=== PATIENT | female | born 1955 | race Caucasian/White ===

== ENCOUNTER 2021-05-18 07:50 | Emergency (ER) | payer OTHER ==
--- OUTSIDE RECORDS SUMMARY | 2021-05-18 07:53 | XMS REPORT | Continuity of Care Document ---
:1955 Author Organization [facility] t Address [address] [place] [address] Care Team Providers Name Role Phone HOLLY SUH Primary Care Physician Unavailable JOSE ROBERTO Attending Clinician Unavailable Samra Rodriguez Attending Clinician [phone] SAMAN SUH Attending Clinician Unavailable Saman Yin Attending Clinician JOSE ROBERTO Admitting Clinician Unavailable SAMAN SUH Admitting Clinician Unavailable Payers Payer Name Policy Type Policy Number Effective Date Expiration Date S won [place]: [id number] 2018 JournalDoc - 00:00:00 [facility] [id number] 2019 COMMUNITY PLAN [place] 00[place]00 [place] A \T\ [id number] 2018 B 00:00:00 MEDICAID [facility] [id number] 2019 00:00:00 Problems This patient has no known problems. Allergies, Adverse Reactions, Alerts Allergy Allergy Status Severity Reaction(s) Onset Inactive Treating Comm ents Source Name Type Date Date Clinician Sulfa Propensi Active Unknown - Unive rs (Sulfona ty to See comments 2-28 it y of mide adverse 00:00: [place] Antibiot reaction 00 Medica l ics) s Branch SULFA Drug Active Unknown-Cmnt Univ ers (SULFONA Class 2-28 ity of MIDE 00:00: [place] ANTIBIOT 00 Medical ICS) Branch Social History Social Habit Start Date Stop Date Quantity Comments Source Sex Assigned At [facility] [place] [facility] [place] Exposure to SARS-CoV-2 Not sure [facility] [place] (event) Medical Branch Smoking Status Start Date Stop Date Source Unknown if ever smoked [facility] [place] Medications Ordered Filled Start Stop Current Ordering Indication Dosage Frequency Signature Comments Components Source Medication Medication Date Date Medication? Clinician (SIG) Name Name iron Yes Take by [facility] bis-gly/FA/ 2-28 mouth. ity of C/B12/Ca/evans 15:57: [facility] [place] [place] 19 Medical (IRON-150 Branch ORAL) LISINOPRIL Yes Take by Uni vers ORAL 2-28 mouth. ity of 15:57: [place] 19 Medical Branch traZODONE Yes 100mg Take 100 Uni vers 100 mg 2-28 mg by ity of tablet 15:57: mouth at [place] [address] bedtime. Medical Branch citalopram Yes Take by Uni vers hydrobromid 2-28 mouth. ity of e 15:57: [place] (CITALOPRAM 19 Medical ORAL) Branch Procedures Procedure Date / Time Performing Clinician Source Performed XR ANKLE 3+ VW RIGHT 2019-11-04 14:30:20 Holly Suh [facility] [place] NOTICE OF BILLING 2019-11-04 14:03:19 Doctor Unassigned, [facility] PRACTICES FOR MEDICARE [facility] PATIENTS [facility] PATIENT FINANCIAL 2019-11-04 14:02:54 Doctor Sherlyssigned, [facility] POLICY [facility] NO SHOW OR MISSED 2019-11-04 14:02:30 Doctor Oziel, [facility] APPOINTMENT POLICY [facility] ACKNOWLEDGEMENT CONSENT/REFUSAL FOR 2019-11-04 14:01:51 Doctor Oziel, [facility] DIAGNOSIS AND TREATMENT [facility] ASSIGNMENT OF BENEFITS 2019-11-04 14:01:30 Doctor Oziel, [facility] Encounters Start End Encounter Admission Attending Care Care Encounter Source Date/Time Date/Time Type Type Clinicians Facility Department ID 2020-06-11 2020-06-11 Outpatient JOSE ROBERTO [facility] [id number] [place] 09:39:00 09:39:00 [facility] 2020-06-10 2020-06-10 Outpatient JOSE ROBERTO [facility] [id number] [place] 03:31:00 03:31:00 [facility] 2020-06-03 2020-06-03 Outpatient TURNER_MIKAEL [facility] [place] 03:43:00 03:43:00 [facility] 2020-06-03 2020-06-03 Outpatient Michael [facility] [id number] 00:00:00 00:00:00 , Dayanna [id number] Samra [id number] 2020-05-17 2020-05-17 Outpatient TURNER_MIKAEL [facility] [place] 11:35:00 11:35:00 [facility] 2020-05-12 2020-05-12 Outpatient TURNER_MIKAEL [facility] [place] 11:35:00 11:35:00 [facility] 2019-11-04 2019-11-04 Outpatient R [facility] [id number] Univers 09:01:14 23:59:00 HOLLY ity of [facility] 2019-11-04 2019-11-04 [facility] [id number] Univers 09:00:00 23:59:00 Encounter Holly Kimbrough [id number] ity [facility] [id number] [facility] [id number] [address] 2019-11-04 2019-11-04 Outpatient [facility] [id number] Univers 09:00:00 09:00:00 HOLLY [id number] ity of [facility] Results Test Description Test Time Test Comments Results Result Sourc e Comments XR ANKLE 3+ VW 2019-10-20 HISTORY: ?Pain. Unive rsity of RIGHT 6 Trauma. FINDINGS: [facility] edical 14:38:42 AP, lateral, Branch oblique views of right ankle showed no acutefracture or dislocation. No significant changes of arthritis or aggressivebone lesions seen. CONCLUSIONS: No acute fracture or dislocation in right ankle. Mild softtissue swelling along the lateral aspect of ankle noted. [facility], Radiant Results Inft - 11/04/2019 9:39 AM CDTHISTORY: Pain. Trauma.FINDINGS: AP, lateral, oblique views of right ankle showed no acutefracture or dislocation. No significant changes of arthritis or aggressivebone lesions seen.CONCLUSIONS: No acute fracture or dislocation in right ankle. Mild softtissue swelling along the lateral aspect of ankle noted.
--- NOTE | 2021-05-18 09:03 | RAD REPORT ---
EXAM DESCRIPTION: RAD - Hand Left 3 View - 05/18/2021 8:17 am CLINICAL HISTORY: PAIN, fall with hand trauma, hyperextension injury COMPARISON: None. FINDINGS: There is fracture of the fourth metacarpal at the shaft- head junction. Very minimal 5 deg ree dorsal angulation of the distal fracture fragment. The third metacarpal head - shaft junction manuel ws slight irregularity of contour of the cortex on the lateral projection. This is questionable for f racture. Mild IP joint space narrowing seen with no spurring or erosive component. Moderate severity narrowin g of the third MCP joint also without spurring or erosive component. Patient has advanced for age deg enerative change the articulation between the scaphoid bone and both the trapezium and trapezoid bone s. Distal radius and ulna are intact. Significant soft tissue swelling over the dorsum of the hand. IMPRESSION: Left fourth metacarpal fracture at the shaft- head junction. There is questionable fract ure at the third metacarpal shaft- head junction as well. IP joint and MCP joint degenerative changes as detailed. Advanced degenerative change present at the scaphoid articulation with the trapezium and trapezoid bones.
[2021-05-18] MEDS ORDERED: IBUPROFEN 200 MG TAB PO ONE (09:14)
--- NOTE | 2021-05-18 09:56 | ER ---
Nurse's Notes [facility] Name: Alize Hernandez Age: 65 yrs Sex: Female : 1955 Arrival Date: 05/18/2021 Time: 08:03 Bed 5 Private MD: Diagnosis: Displaced fracture of neck of fourth metacarpal bone, left hand, initial encounter for closed fracture;Nondisplaced fracture of neck of third metacarpal bone, left hand, initial encounter for closed fracture Presentation: 05/18 08:05 Chief complaint: EMS states: FALL ONTO LEFT HAND YESTERDAY, LEFT HAND FX HEMATOMA. bp Coronavirus screen: At this time, the client does not indicate any symptoms associated with coronavirus-19. Ebola Screen: No symptoms or risks identified at this time. Initial Sepsis Screen: Does the patient meet any 2 criteria? No. Patient's initial sepsis screen is negative. Does the patient have a suspected source of infection? No. Patient's initial sepsis screen is negative. Risk Assessment: Do you want to hurt yourself or someone else? Patient reports no desire to harm self or others. Onset of symptoms was May 17, 2021 at 17:00. 08:05 Method Of Arrival: EMS: [facility] bp 08:05 Acuity: KORY 3 bp Triage Assessment: 08:05 General: Appears in no apparent distress. comfortable, Behavior is calm, cooperative, bp appropriate for age. Pain: Complains of pain in left hand. EENT: No deficits noted. Neuro: No deficits noted. Cardiovascular: No deficits noted. Respiratory: No deficits noted. GI: No signs and/or symptoms were reported involving the gastrointestinal system. : No signs and/or symptoms were reported regarding the genitourinary system. Derm: No deficits noted. Musculoskeletal: Bony deformity noted of left hand. Injury Description: Deformity sustained to left hand. Historical: - Allergies: 08:13 Sulfa (Sulfonamide Antibiotics); bp - Home Meds: 08:13 Celexa 10 mg Oral tab 1 tab once daily [Active]; hydrochlorothiazide 25 mg Oral tab 1 bp tab once daily [Active]; lisinopril 40 mg Oral tab 1 tab once daily [Active]; trazodone 150 mg Oral Tb24 1 tab once daily [Active]; - PMHx: 08:13 Hypothyroidism; Hypercholesterolemia; Depressive disorder; bp - Immunization history:: Adult Immunizations up to date. - Social history:: Smoking status: Patient reports the use of cigarette tobacco products, unknown amount. Screenin:10 Abuse screen: Denies threats or abuse. Denies injuries from another. Nutritional bp screening: No deficits noted. Tuberculosis screening: No symptoms or risk factors identified. Fall Risk None identified. Assessment: 08:10 General: SEE TRIAGE NOTE. bp 09:00 Reassessment: No changes from previously documented assessment. Patient and/or family bp updated on plan of care and expected duration. Pain level reassessed. XRAY COMPLETE, RESULTS PENDING. Vital Signs: 08:05 BP 116 / 84; Pulse 80; Resp 14; Temp 98.4; Pulse Ox 98% ; bp 09:30 BP 116 / 61; Pulse 76; Resp 16; Temp 98; Pulse Ox 100% ; bp ED Course: 08:03 Patient arrived in ED. jl7 08:04 Oneil Patel PA is PHCP. cp 08:04 Titus Wilson MD is Attending Physician. cp 08:05 Arm band placed on. bp 08:10 Patient has correct armband on for positive identification. Bed in low position. Call bp light in reach. Side rails up X2. 08:11 Brien Jaimes, MUSA is Primary Nurse. bp 08:13 Triage completed. bp 08:17 XRAY Hand LEFT 3 View In Process Unspecified. EDMS 09:50 Orthoglass splint: Ulnar gutter/Boxer splint applied on left forearm. bp 09:51 Richard Houston MD is Referral Physician. cp 09:57 No provider procedures requiring assistance completed. Patient did not have IV access bp during this emergency room visit. Administered Medications: 09:04 CANCELLED (Other Intervention Used): Tylenol 650 mg PO once bp 09:18 Drug: Ibuprofen 600 mg Route: PO; bp 09:56 Follow up: Response: Pain is decreased bp Outcome: 09:55 Discharge ordered by . cp 10:13 Discharged to group home. Transfer form completed. bp 10:13 Condition: stable 10:13 Discharge instructions given to patient, family, Instructed on discharge instructions, follow up and referral plans. medication usage, Demonstrated understanding of instructions, follow-up care, medications, splint care, Prescriptions given X 2. 10:14 Patient left the ED. bp Signatures: Dispatcher [employer] EDMS Oneil Patel PA PA cp Leal, Jahala, RN RN jl7 Brien Jaimes, RN RN bp
--- NOTE | 2021-05-18 09:56 | EDPHYS ---
Physician Documentation [facility] Name: Alize Hernandez Age: 65 yrs Sex: Female : 1955 Arrival Date: 05/18/2021 Time: 08:03 Bed 5 Private MD: ED Physician Titus Wilson HPI: 05/18 08:15 This 65 yrs old Female presents to ER via EMS with complaints of Finger Injury. cp 08:15 The patient or guardian reports injury, pain, swelling, tenderness. The complaints cp affect the left hand diffusely. Context: The problem was sustained at a fpc or assisted living facility, resulted from a fall. 08:15 Onset: The symptoms/episode began/occurred yesterday. Associated signs and symptoms: cp The patient has no apparent associated signs or symptoms. Historical: - Allergies: 08:13 Sulfa (Sulfonamide Antibiotics); bp - Home Meds: 08:13 Celexa 10 mg Oral tab 1 tab once daily [Active]; hydrochlorothiazide 25 mg Oral tab 1 bp tab once daily [Active]; lisinopril 40 mg Oral tab 1 tab once daily [Active]; trazodone 150 mg Oral Tb24 1 tab once daily [Active]; - PMHx: 08:13 Hypothyroidism; Hypercholesterolemia; Depressive disorder; bp - Immunization history:: Adult Immunizations up to date. - Social history:: Smoking status: Patient reports the use of cigarette tobacco products, unknown amount. ROS: 08:20 MS/extremity: Positive for injury or acute deformity, ecchymosis, pain, swelling, cp tenderness, of the left hand. 08:20 Neck: Negative for pain with movement, pain at rest, stiffness. cp 08:20 Cardiovascular: Negative for chest pain. 08:20 Respiratory: Negative for cough, shortness of breath, wheezing. 08:20 Abdomen/GI: Negative for abdominal pain, nausea, vomiting, and diarrhea. 08:20 Neuro: Negative for altered mental status, headache, numbness, weakness. 08:20 All other systems are negative. Exam: 08:25 Head/Face: Normocephalic, atraumatic. cp 08:25 Constitutional: The patient appears in no acute distress, alert, awake, well developed, well nourished. 08:25 Chest/axilla: Inspection: normal. 08:25 Cardiovascular: Rate: normal, Pulses: Pulses are 2+ in left radial artery. 08:25 Respiratory: the patient does not display signs of respiratory distress, Respirations: normal, no use of accessory muscles, no retractions, labored breathing, is not present. 08:25 Musculoskeletal/extremity: Extremities: grossly normal except: noted in the dorsum of left hand: ecchymosis, pain, swelling, tenderness, ROM: limited active range of motion due to pain, in the left hand, Perfusion: the extremity is normally perfused throughout, the left hand Sensation intact. Vital Signs: 08:05 BP 116 / 84; Pulse 80; Resp 14; Temp 98.4; Pulse Ox 98% ; bp 09:30 BP 116 / 61; Pulse 76; Resp 16; Temp 98; Pulse Ox 100% ; bp Procedures: 10:15 Splinting: Splint applied to left hand using Orthoglass splint, ulna gutter. applied by cp nurse. Examined by me, post splint application: neurovascular intact, Patient tolerated well. MDM: 08:08 Patient medically screened. cp 09:47 ED course: no results found on inquiry of [place] prescription monitor website. cp 09:55 Data reviewed: vital signs, nurses notes, radiologic studies, plain films. cp 09:55 Differential diagnosis: dislocation, open fracture, closed fracture, contusion. Test cp interpretation: by ED physician or midlevel provider: plain radiologic studies. Counseling: I had a detailed discussion with the patient and/or guardian regarding: the historical points, exam findings, and any diagnostic results supporting the discharge/admit diagnosis, radiology results, the need for outpatient follow up, a hand specialist, to return to the emergency department if symptoms worsen or persist or if there are any questions or concerns that arise at home. Response to treatment: the patient's symptoms have markedly improved after treatment, and as a result, I will discharge patient. 05/18 08:07 Order name: XRAY Hand LEFT 3 View; Complete Time: 09:10 cp 05/18 09:10 Interpretation: Report reviewed. cp 05/18 09:48 Order name: Splint - Ulnar Gutter; Complete Time: 09:56 cp Administered Medications: 09:04 CANCELLED (Other Intervention Used): Tylenol 650 mg PO once bp 09:18 Drug: Ibuprofen 600 mg Route: PO; bp 09:56 Follow up: Response: Pain is decreased bp Disposition: 10:15 Chart complete. cp 14:22 Co-signature as Attending Physician, Titus Wilson MD I agree with the assessment and kdr plan of care. Disposition Summary: 05/18/21 09:55 Discharge Ordered Location: Home cp Problem: new cp Symptoms: have improved cp Condition: Stable cp Diagnosis - Displaced fracture of neck of fourth metacarpal bone, left hand, initial encounter cp for closed fracture - Nondisplaced fracture of neck of third metacarpal bone, left hand, initial cp encounter for closed fracture Followup: cp - With: Richard Houston MD - When: 2 - 3 days - Reason: Recheck today's complaints Discharge Instructions: - Discharge Summary Sheet cp - Metacarpal Fracture cp Forms: - Medication Reconciliation Form cp - Thank You Letter cp - Antibiotic Education cp - Prescription Opioid Use cp Prescriptions: - Ibuprofen 800 mg Oral Tablet - take 1 tablet by ORAL route every 8 hours As needed take with food; 30 tablet; cp Refills: 0, Product Selection Permitted - Tramadol 50 mg Oral Tablet - take 1 tablet by ORAL route every 8 hours as needed; 20 tablet; Refills: 0, cp Product Selection Permitted Signatures: Dispatcher [employer] EDMS Titus Wilson MD MD kdr Oneil Patel PA PA cp Brien Jaimes RN RN bp Corrections: (The following items were deleted from the chart) 09:04 08:29 Tylenol 650 mg PO once ordered. cp bp
[2021-05-18 10:22] VITALS: BP 116/61; TEMP 98; O2SAT 100
== END 2021-05-18 10:14 | disposition home or self-care (01) ==
LOC: ER 07:50
PROC: 2W3DX1Z Immobilization of Left Lower Arm using Splint (ICD-10-PCS; principal; 2021-05-18)
DX: S62.335A Displaced fracture of neck of fourth metacarpal bone, left hand, initial encounter for closed fracture (principal); S62.363A Nondisplaced fracture of neck of third metacarpal bone, left hand, initial encounter for closed fracture; W18.30XA Fall on same level, unspecified, initial encounter; Y93.9 Activity, unspecified; Y92.129 Unspecified place in nursing home as the place of occurrence of the external cause; Z88.2 Allergy status to sulfonamides; E03.9 Hypothyroidism, unspecified; E78.00 Pure hypercholesterolemia, unspecified
CPT/HCPCS: 99284

== ENCOUNTER 2021-06-14 08:31 | Day surgery (SDC) | payer OTHER ==
[2021-06-14 09:06] LABS: Absolute Lymphocytes (CBC) 1.2 K/uL (0.7-4.9); Hematocrit 31.4 % (36.0-45.0); Lymphocytes % 14.9 % (15.3-44.8); MPV 7.7 fL (7.6-11.3); RBC Red Blood Cell Count 3.42 M/uL (3.86-4.86)
[2021-06-14] MEDS ORDERED: Ringers Lactate 0 ML IV ONE (09:19)
[2021-06-14 09:21] LABS: Potassium 3.9 mmol/L (3.5-5.1)
[2021-06-14] MEDS ORDERED: CEFAZOLIN/NS 1gm 1 GM/50 ML BAG ONE (09:23)
[2021-06-14] MEDS ORDERED: ROPLVACAINE HCL 20 ML ONE (09:28)
[2021-06-14] MEDS ORDERED: KETOROLAC 30 MG/ML INJ ONE (09:28)
[2021-06-14] MEDS ORDERED: LIDOCAINE 2% MPF 5 ML VIAL ONE (09:28)
[2021-06-14] MEDS ORDERED: LANO/MINERAL OIL/PETRO 3.5 GM ONE (09:28)
[2021-06-14] MEDS ORDERED: propofoL 200 MG/20 ML VIAL IV ONE ×2 (09:28→11:28)
[2021-06-14] MEDS ORDERED: MIDAZOLAM HCL 2 MG/2 ML INJ ONE (09:28)
[2021-06-14] MEDS ORDERED: FENTANYL CITR 100 MCG/2 ML ONE (09:28)
[2021-06-14] MEDS ORDERED: LIDOCAINE 1% MPF 30 ML VIAL ONE (09:28)
[2021-06-14] MEDS ORDERED: dexAMETHasone 10 MG/ML VIAL ONE (09:28)
[2021-06-14] MEDS ORDERED: ONDANSETRON 4 MG/2 ML VIAL ONE (09:28)
[2021-06-14] MEDS: Ringers Lactate 1,000 ML IV ONE ×2 (09:33→11:07)
--- NOTE | 2021-06-14 10:43 | RAD REPORT ---
EXAM DESCRIPTION: RAD - Chest Pa And Lat (2 Views) - 06/14/2021 9:47 am CLINICAL HISTORY: PREsurgical exam, history of hypertension COMPARISON: None TECHNIQUE: Frontal and lateral views of the chest were obtained. FINDINGS: The lungs are normal volume. No peripheral mass or consolidation. Patient probably has a m ild fibrotic lung pattern. Medial right apex density is probably summation of vasculature. Heart siz e is normal and central vasculature is within normal limits. No pleural effusion or pneumothorax see n. Advanced degenerative change present at both shoulder joints with flattened contour of the articu lar surfaces of each humeral head and joint space narrowing. Bilateral rotator cuff tear is are proba jenn present. No aortic abnormality. IMPRESSION: Mild scattered fibrotic change with no acute cardiopulmonary process. Right apex peritracheal density is probably summation of vasculature rather than mass. No comparison is available. If the patient has risk factors for thoracic malignancy, CT chest imaging could be performed. Otherwi se, comparison can be made to any outside study or follow-up chest imaging in 3-4 months could be per formed.
[2021-06-14] MEDS ORDERED: MORPHINE 10 MG/ML VIAL ONE (11:50)
[2021-06-14] MEDS ORDERED: NA CHLORIDE 0.9% 50 ML ONE (11:50)
[2021-06-14 12:53] VITALS: O2SAT 95
[2021-06-14] MEDS ORDERED: CODEINE 30MG/APAP 300MG TAB ONE (13:09)
--- NOTE | 2021-06-14 13:50 | HP ---
Date of Admission: 06/14/2021 History Of Present Illness: A 65-year-old white female, right-hand dominant, who fell approximately 3 weeks ago, fractured left ring finger metacarpal neck. X-rays were taken initially in the ER and t hen subsequent x-ray shows worse angulation and displacement. She has history of previous tracheosto my for months. Medical problems Allergies: NO ALLERGIES. Medications: She is on multiple medications. See her list. Physical Examination: She has tenderness over the fourth metacarpal head region. She is 5 feet 1 inch Fractures of head and neck of the fourth metacarpal. Plan: Percutaneous pinning, possible open reduction and internal fixation. BARBY Voice ID: [id number]
--- NOTE | 2021-06-14 13:56 | OP ---
Surgeon: Richard Houston MD Preoperative Diagnosis: Fracture of the fourth metacarpal neck. Postoperative Diagnosis: Fracture of the fourth metacarpal neck. Procedure Performed: Attempted percutaneous pinning, open reduction and internal fixation and splint . Anesthesia: general. Procedure In Detail: After satisfactory induction of general anesthesia, traction was placed and att empts were made to manipulate the fracture. C-arm revealed no motion. The fracture was malunion and displaced with open reduction. The arm was prepped with Betadine scrub, Betadine paint. Dry steril e drapes were applied in the usual manner. The arm was elevated, exsanguinated with an Esmarch. Davey rniquet was inflated to 250 mmHg. Hand was placed on Roto Lock table. A curvilinear incision was ma de over the metacarpal head and neck and the base dissected and was retracted ulnarly. Veins were r etracted electrocoagulated. Dissection was proceeded down to the extensor tendon to the r ing finger and it was split over the metacarpal head region and dissected down to the fracture. The patient had a malunion with the hand displaced ulnarly and proximally displaced radially, thick calci fication callus and then the fracture had been bone saw was used to c ut off. The areas were contoured and then percutaneous pins were placed through the web spaces and a dvanced from the head of the metacarpal into the base of metacarpal and into the proximal carpal bone s. Two K-wires were placed. X-ray anterior-posterior, lateral and oblique showed good reduction and excellent pin placement. The pins were bent and cut and then tourniquet released. Electrocautery w as used for hemostasis. closed with 4-0 PDS. The extensor tendon was approximated with P DS suture where it was split longitudinally and the skin closed with 4-0 Prolene vertical mattress evans tures. Xeroform, 2-inch Carmencita, Kerlix, and a splint, holding the wrist in 10 degrees dorsiflexion, MCP 90, PIP and DIP 0. The patient tolerated the procedure well and returned to recove ry. GH/MODL Voice ID: [id number] Report ID: [id number]
[2021-06-14 15:29] VITALS: BP 139/68; TEMP 98.1
--- NOTE | 2021-06-14 16:53 | EKG ---
Test Date: 2021-06-14 Test Time: 09:10:26 Application Software Developer: RITA MEASUREMENT RESULTS: Intervals: Rate: 76 OK: 154 QRSD: 78 QT: 390 QTc: 438 Commerce: P: 68 OK: 154 QRS: 57 T: 5 INTERPRETIVE STATEMENTS: Normal sinus rhythm ST & T wave abnormality, consider lateral ischemia Abnormal ECG No previous ECG available for comparison Electronically Signed On 06-14-21 16:53:14 CRYPTANALYST by Khris Moreno
--- NOTE | 2021-06-15 09:54 | RAD REPORT ---
EXAM DESCRIPTION: RAD - Fluoroscopy <1 Hour - 06/15/2021 9:40 am FINDINGS: Sixteen portable C-arm views were obtained during fluoroscopic assisted placement of fract ure fixation pins. Images show stepwise placement of the hardware. No suspicious or unexpected findin g. Fluoro time was 0.4 minutes with a 0.64 mGy cumulative dose.
== END 2021-06-14 14:10 | disposition home or self-care (01) ==
LOC: OR 08:31
PROVIDERS: ATTEND Specialist
PROC: 0PSQ04Z Reposition Left Metacarpal with Internal Fixation Device, Open Approach (ICD-10-PCS; principal; 2021-06-14 09:00)
DX: S62.335A Displaced fracture of neck of fourth metacarpal bone, left hand, initial encounter for closed fracture (principal)
CPT/HCPCS: 93005; 85025; 80048; 36415; 88305; 88311; 71046; 26615; J2704 ×2; J2250; J3010; J1100; J2795; J0690; J7120; J2405; 76000; 88304